=== PATIENT | male | born 1990 | race Caucasian/White ===

== ENCOUNTER 2021-09-03 00:25 | Emergency (ER) | payer OTHER ==
[~2021-09-03 00:25] MED LIST: BENADRYL 25MG C25 MG PO; FLEXERIL 10 MG10 MG PO; IBUPROFEN600 MG PO; MEDROL4 MG PO; ZANTAC150 MG PO
[2021-09-03] MEDS ORDERED: POLYTRIM EYE DR10 ML EYERT (03:37)
== END 2021-09-03 04:00 | disposition home or self-care (01) ==
LOC: ER1 00:25
DX: H10.31 Unspecified acute conjunctivitis, right eye (principal); Z88.0 Allergy status to penicillin
CPT/HCPCS: 99283